=== PATIENT | male | born 1995 | race Hispanic/Latino ===

== ENCOUNTER 2021-07-06 13:31 | Emergency (ER) | payer SELFPAY ==
--- NOTE | ~2021-07-06 | CT_ITS ---
EXAMINATION: CT brain wo con DATE: 07/06/2021 18:37 INDICATION: Generalized weakness. Seizures. TECHNIQUE: Computed tomography (CT) of the head was performed without intravenous contrast. The mA wa s adjusted according to patient size. Iterative reconstruction technique was employed. The dose-lengt h product was 605.33 mGy-cm. COMPARISON: None FINDINGS: There is no intracranial hemorrhage, acute infarction, or abnormal intracranial mass lesion . The ventricles are normal in size. Cavum septum pellucidum is noted. The orbits are normal. There i s mucosal thickening in the paranasal sinuses. The mastoid air cells are normal. IMPRESSION: 1. Normal brain. Reviewed, dictated and finalized at location A. [facility] CLINICAL RESEARCH SCIENTIST IMPRESSION: 1. Normal brain.
--- NOTE | ~2021-07-06 | XR_ITS ---
EXAMINATION: XR chest 2V 07/06/2021 18:45 INDICATION: Generalized weakness and epigastric pain PROCEDURE: 2 view chest COMPARISON: No prior studies for comparison. FINDINGS: There is left perihilar airspace disease, suspicious for developing pneumonia. The cardiome diastinal silhouette is within normal limits. There are no pleural effusions. There is no pneumotho rax suspected. IMPRESSION: 1: Left perihilar airspace disease, suspicious for pneumonia. Reviewed, dictated and finalized at location A. ERIES SPECIALIST
[2021-07-06 13:52] VITALS: BP 141/83; PULSE 94; RESP 18; TEMP 36.4; O2SAT 100
--- NOTE | 2021-07-06 14:17 | PC.NURSE ---
pt given financial aide brochure (bangladeshi version)
[2021-07-06 15:31] VITALS: BP 137/85; PULSE 78; RESP 16; TEMP 36.8; O2SAT 98
--- NOTE | 2021-07-06 17:40 | ECG_ITS ---
Measurements Intervals [place] Rate: 66 P: 29 AL: 151 QRS: 42 QRSD: 84 T: 34 QT: 376 QTc: 395 Interpretive Statements SINUS RHYTHM WITH SINUS ARRHYTHMIA NORMAL ECG Electronically Signed On 07-06-2021 20:08:45 LODGING FACILITIES MANAGER by Harrison Cox D.O.
--- NOTE | 2021-07-06 18:08 | ED.WEAKNESS ---
HPI - Weakness General Chief complaint: Weakness <Yoli Carrasco PA-C - Last Filed: 07/06/21 20:39> Stated complaint: weakness, bloody nose <COLTEN Galo Last Filed: 07/06/21 20:39> Time Seen by Provider: 07/06/21 17:43 <Yoli Carrasco PA-C - Last Filed: 07/06/21 20:39> Source: patient <COLTEN Galo Last Filed: 07/06/21 20:39> Mode of arrival: ambulatory <COLTEN Galo Last Filed: 07/06/21 20:39> Limitations: language barrier (Use stratus inspector fabric) <COLTEN Galo Last Filed: 07/06/21 20:39> History of Present Illness HPI Narrative: This is a 25-year-old male that presents to the emergency department for generalized weakness. Ongoing over the last 5 days. He does not report any focalizing symptoms. Reports history of seizure disorder for which he used to be on antiepileptics. He has not been on any medication since he moved to the . Denies fever, chest pain, shortness of breath, abdominal pain, vomiting, or dysuria. <COLTEN Galo Last Filed: 07/06/21 20:39> Related Data Home medications: Home Medications Medication Instructions Recorded Confirmed No Home Medications 07/06/21 07/06/21 <COLTEN Galo Last Filed: 07/06/21 20:39> Allergies/Adverse reactions: Allergies Allergy/AdvReac Type Severity Reaction Status Date / Time No Known Allergies Allergy Verified 07/06/21 20:35 <COLTEN Galo Last Filed: 07/06/21 20:39> Review of Systems Review of Systems: CONSTITUTIONAL: Denies fever CARDIOVASCULAR: Denies chest pain RESPIRATORY: Denies dyspnea. GASTROINTESTINAL: Denies abdominal pain, nausea, vomiting GENITOURINARY: Denies dysuria or hematuria. <COLTEN Galo Last Filed: 07/06/21 20:39> All systems reviewed & are unremarkable except as noted in HPI and below <Yoli Carrasco PA-C - Last Filed: 07/06/21 20:39> [facility] Past Medical History Medical History: Medical History (Updated 07/07/21 @ 00:01 by Libby Grubbs) History of seizures <Yoli Carrasco PA-C - Last Filed: 07/06/21 20:39> Social History Social History: Social History (Updated 07/06/21 @ 19:42 by Yoli Carrasco PA-C) Smoking status: Never smoker <Yoli Carrasco PA-C - Last Filed: 07/06/21 20:39> Exam Narrative: GENERAL: Well-appearing, well-nourished, and in no acute distress. HEAD: Normocephalic, atraumatic. EYES: EOMI. ENT: Nares clear, no rhinorrhea or epistaxis. Mucous membranes moist. Oropharynx without tonsillar hypertrophy exudate or other lesions. Bilateral TMs pearly kwon non-bulging NECK: Supple. No adenopathy or masses. CHEST: Clear to auscultation. No respiratory distress. No wheezes rales or rhonchi HEART: Regular rate and rhythm. No murmur heard. Normal peripheral pulses. ABDOMEN: Soft, nontender, nondistended, normal active bowel sounds. EXTREMITIES: Normal range of motion. No edema. SKIN: Warm, dry, no rash. NEURO: No focal deficits. Alert and oriented x3. PSYCH: Normal mood and affect <Yoli Carrasco PA-C - Last Filed: 07/06/21 20:39> Course Vital Signs Vital signs: Vital Signs Temperature 97.5 F L 07/06/21 13:52 Pulse Rate 94 07/06/21 13:52 Respiratory Rate 18 07/06/21 13:52 Blood Pressure 141/83 H 07/06/21 13:52 Pulse Oximetry 100 07/06/21 13:52 Temperature 98.2 F 07/06/21 15:31 Pulse Rate 79 07/06/21 21:09 Respiratory Rate 16 07/06/21 21:09 Blood Pressure 131/91 H 07/06/21 21:09 Pulse Oximetry 100 07/06/21 21:09 <Yoli Carrasco PA-C - Last Filed: 07/06/21 20:39> MDM - Weakness MDM Narrative Medical decision making narrative: Patient presents to the emergency department for generalized weakness without focalizing symptoms. He is afebrile and nontoxic-appearing. His vitals are stable. CBC without concerning findings. Metabolic panel with evidence of probable mild dehydration. Pat
[2021-07-06 18:13] LABS: Basophils Percent Auto 0.4 % (0.2-1.2); Eosinophils Absolute Auto 0.3 K/mm3 (0-0.3); Eosinophils Percent Auto 3.5 % (0-4.4); Hematocrit 45.8 % (42.0-52.0); Hemoglobin 15.6 g/dL (14.0-18.0); Immature Granulocyte Absolute 0.05 K/mm3 (0.00-0.031); Immature Granulocyte Percent A 0.5 % (0-0.5); Lymphocytes Absolute Auto 3.04 K/mm3 (0.9-3.2); Lymphocytes Percent Auto 31.6 % (18.3-44.2); Mean Corpuscular HGB Conc 34.1 g/dl (32-36); Mean Corpuscular Hemoglobin 29.1 pg (26-34); Mean Corpuscular Volume 85.3 fl (80-100); Mean Platelet Volume 11.2 fl (7.4-10.4); Monocytes Absolute Auto 0.8 K/mm3 (0.1-0.6); Monocytes Percent Auto 7.8 % (2.6-8.5); Neutrophils Absolute Auto 5.4 K/mm3 (1.3-6.7); Neutrophils Percent Auto 56.2 % (45.5-73.1); Platelet Count Result 227 k/mm3 (150-375); Red Blood Count 5.37 M/mm3 (4.6-6.20); Red Cell Distribution Width 12.5 % (11.5-14.5); White Blood Count 9.6 K/mm3 (4.5-10.0)
[2021-07-06 18:27] LABS: Alanine Aminotransferase 24 U/L (4-50); Albumin Level 3.9 g/dL (3.5-5.1); Alkaline Phosphatase 130 U/L (38-126); Anion Gap 9 mmol/L (8-16); Aspartate Amino Transferase 33 U/L (17-59); Bilirubin,Total 0.6 mg/dL (0.2-1.3); Blood Urea Nitrogen 26 mg/dL (9-20); Carbon Dioxide 23 mmol/L (22-30); Chloride 105 mmol/L (98-107); Estimated CRCL calculation 69 ml/min; Estimated Glomerular Filt Rate 53; Glucose 102 mg/dL (65-110); Magnesium 1.7 mg/dL (1.6-2.3); Potassium 4.8 mmol/L (3.4-5.0); Sodium 137 mmol/L (137-145)
[2021-07-06 18:28] LABS: INR 0.9; Prothrombin Time 11.7 Seconds (11.1-14.7)
[2021-07-06 18:29] LABS: Partial Thromboplastin Time 28.7 SECONDS (22.3-36.8)
[2021-07-06] MEDS: SODIUM CHLORIDE 0.9% IV 1,000 ML 999 ML IV CONT (18:30)
[2021-07-06 19:11] LABS: Creatine Kinase 144 U/L (55-170)
[2021-07-06 21:09] VITALS: BP 131/91; PULSE 79; RESP 16; O2SAT 100
== END 2021-07-06 21:11 | disposition home or self-care (01) ==
PROVIDERS: Physician Assistant; Emergency Provider General Practice
DX: E86.0 Dehydration (principal); J18.9 Pneumonia, unspecified organism; G40.909 Epilepsy, unspecified, not intractable, without status epilepticus
CPT/HCPCS: 36415; 70450; 71046; 80053; 82550; 83735; 84443; 85025; 85610; 85730; 93005; 96360; 99284; J7030